=== PATIENT | female | born 1990 | race Caucasian/White ===

== ENCOUNTER 2020-06-22 07:00 | Outpatient (CLI) | payer OTHER ==
[2020-06-22 19:45] LABS: BILIRUBIN,URINE NEGATIVE (NEGATIVE); GLUCOSE, URINE (UA) NEGATIVE (NEGATIVE); KETONES,URINE (UA) NEGATIVE (NEGATIVE); LEUKOCYTE ESTERASE, URINE NEGATIVE (NEGATIVE); NITRITE,URINE NEGATIVE (NEGATIVE); OCCULT BLOOD,URINE TRACE-LYSE (NEGATIVE); PROTEIN,URINE NEGATIVE (NEGATIVE); UROBILINOGEN,URINE 0.2 (NORMAL) E.U./dL (NORMAL)
[2020-06-22 19:50] LABS: CLARITY,URINE CLEAR (CLEAR)
== END 2020-06-22 23:59 | disposition home or self-care (01) ==
LOC: LAB.R 07:00
PROVIDERS: ATTEND Obstetrics & Gynecology
DX: Z34.90 Encounter for supervision of normal pregnancy, unspecified, unspecified trimester (principal)
CPT/HCPCS: 81001; 81003; 87086

== ENCOUNTER 2020-06-28 13:59 | Outpatient (CLI) | payer OTHER ==
[2020-06-28 14:34] LABS: BASOPHILS % (AUTO) 0.3 %; EOSINOPHILS # (AUTO) 0.2 10^3/uL (0.0-0.7); EOSINOPHILS % (AUTO) 1.5 %; HGB - HEMOGLOBIN 13.5 g/dL (12.0-16.0); LYMPHOCYTES # (AUTO) 2.1 10^3/uL (1.5-3.5); LYMPHOCYTES % (AUTO) 19.9 %; MEAN CORPUSCULAR HGB CONC 32.7 g/dL (32.0-36.0); MEAN CORPUSCULAR VOLUME 97.9 fL (81.0-99.0); MEAN PLATELET VOLUME 9.4 fL (7.9-10.8); MONOCYTES # (AUTO) 0.5 10^3/uL (0.0-1.0); MONOCYTES % (AUTO) 5.1 %; NEUTROPHILS # (AUTO) 7.8 10^3/uL (1.5-6.6); NEUTROPHILS % (AUTO) 72.9 %; PLT - PLATELET COUNT 360 10^3/uL (130-450); RED BLOOD COUNT 4.22 10^6/uL (4.20-5.40); RED CELL DISTRIBUTION WIDTH 11.5 % (12.0-15.0); WHITE BLOOD COUNT 10.7 x10^3/uL (4.8-10.8)
--- NOTE | 2020-06-28 15:56 | Ultrasound Report ---
PROCEDURE: OB First Trimester w/TV INDICATIONS: SUPERVISION OF NORMAL OUTSIDE/PRIOR DATING DATA: Last menstrual period (LMP): 05/13/2020. LMP-based estimated date of delivery (NELL): 02/18/2020. None. TECHNIQUE: Real-time scanning was performed of the fetus and maternal pelvic organs, with image documentation. Endovaginal scanning was also performed to better visualize the fetus and maternal ovaries. COMPARISON: FINDINGS: Embryo: There is a gestational sac in the uterine fundus measuring approximately 9 mm, corresponding to a gestational age of 5 weeks 6 days. No fetus is identified within the gestational sac. Measurement variability in dating: +/- 4 weeks by LMP, +/- 7 days by mean sac diameter (use before 6 weeks gestation if crown-rump length not able to be measured), +/- 5 days by crown-rump length (6-12 weeks gestation). Maternal organs: Ovaries are within normal limits. IMPRESSION: Approximately 9 mm gestational sac in uterine fundus, consistent with an early of approxima tely 5 weeks 6 days gestational. Reviewed by: Mateo Hyde MD on 06/28/2020 3:55 PM PST Approved by: Mateo Hyde MD on 06/28/2020 3:55 PM PST Station ID: [id number]
[2020-06-29 11:07] LABS: HEPATITIS B SURFACE ANTIGEN NON-REACTIVE (NON-REACTIVE)
[2020-06-29 12:37] LABS: HEPATITIS C ANTIBODY NON-REACTIVE (NON-REACTIVE)
[2020-06-29 12:58] LABS: HIV AG/AB 4TH GEN NON-REACTIVE (NON-REACTIVE)
== END 2020-06-28 14:00 | disposition home or self-care (01) ==
LOC: DI 13:59
PROVIDERS: ATTEND Advanced Practice Midwife
DX: Z34.91 Encounter for supervision of normal pregnancy, unspecified, first trimester (principal)
CPT/HCPCS: 36415; 81599; 85025; 86762; 86787; 86803; 86850; 86900; 86901; 87340; 87389

== ENCOUNTER 2020-07-01 15:56 | Outpatient (CLI) | payer OTHER ==
[2020-07-01 18:43] LABS: HEMOGLOBIN A1c% 4.9 % (4.27-6.07)
== END 2020-07-01 15:57 | disposition home or self-care (01) ==
LOC: LAB 15:56
PROVIDERS: ATTEND Obstetrics & Gynecology
DX: O26.849 Uterine size-date discrepancy, unspecified trimester (principal)
CPT/HCPCS: 36415; 83036; 84443; 84702

== ENCOUNTER 2020-07-03 16:02 | Outpatient (CLI) | payer OTHER | END 2020-07-03 16:03 | disposition home or self-care (01) | LOC: LAB 16:02 | PROVIDERS: ATTEND Obstetrics & Gynecology | DX: O26.849 Uterine size-date discrepancy, unspecified trimester (principal) | CPT/HCPCS: 36415; 84702 ==

== ENCOUNTER 2020-07-07 14:08 | Outpatient (CLI) | payer OTHER ==
--- NOTE | 2020-07-07 16:32 | Ultrasound Report ---
PROCEDURE: OB First Trimester w/TV INDICATIONS: UTERINE SIZE-DATE DESCREPANCY OUTSIDE/PRIOR DATING DATA: Last menstrual period (LMP): 05/13/2020. LMP-based estimated date of delivery (NELL): 02/18/2020. First dating scan (date and location): This study, 07/07/2020. Estimated date of delivery (NELL) from first dating scan: 02/27/2021. TECHNIQUE: Real-time scanning was performed of the fetus and maternal pelvic organs, with image documentation. Endovaginal scanning was also performed to better visualize the fetus and maternal ovaries. COMPARISON: 06/28/2020 comparison examination, first trimester exam. A pole was not seen at lucien t examination. FINDINGS: Findings are consistent with a viable intrauterine gestation. Embryo: [employer]-rump length of 6 mm correlates with a gestational age of 6 weeks 3 days, +/- 5 days. F etal heart rate at 1 21 bpm is observed. Measurement variability in dating: +/- 4 weeks by LMP, +/- 7 days by mean sac diameter (use before 6 weeks gestation if crown-rump length not able to be measured), +/- 5 days by crown-rump length (6-12 weeks gestation). Maternal organs: Ovaries appear normal considering gestational status. Limited images through the k idneys demonstrate no hydronephrosis. IMPRESSION: Early first trimester gestation, heart rate documented, current gestational age is 6 weeks 3 da ys, +/- 5 days, with delivery date projected to be centered on 02/27/2021. Reviewed by: Arnav Romero MD on 07/07/2020 4:31 PM PST Approved by: Arnav Romero MD on 07/07/2020 4:31 PM PST Station ID: [id number]
== END 2020-07-07 14:09 | disposition home or self-care (01) ==
LOC: DI 14:08
PROVIDERS: ATTEND Obstetrics & Gynecology
DX: O26.841 Uterine size-date discrepancy, first trimester (principal); Z3A.01 Less than 8 weeks gestation of pregnancy